=== PATIENT | male | born 1955 | race Hispanic/Latino ===

== ENCOUNTER 2017-12-30 22:16 | Emergency (ER) | payer SELFPAY ==
[2017-12-30] MEDS ORDERED: NA CHLORIDE 0.9% 1,000 ML ONE (22:56)
[2017-12-30 23:20] LABS: Urine Blood TRACE (NEG); Urine Glucose NEGATIVE (NEG); Urine Protein 1+ (NEG); Urine Specific Gravity 1.015 (1.005-1.030)
[2017-12-30 23:34] LABS: Absolute Lymphocytes (CBC) 0.4 K/uL (0.7-4.9); Absolute Monocytes 0.5 K/uL (0.1-1.3); Basophils % 0.9 % (0-1.3); Lymphocytes % 13.1 % (15.3-44.8); MCH 33.9 pg (27.0-35.0); MCV 98.2 fL (80-100); MPV 11.3 fL (7.6-11.3); Monocytes % 15.9 % (3.3-12.3); RBC Red Blood Cell Count 3.57 M/uL (4.33-5.43)
[2017-12-30 23:37] LABS: Protime INR 1.29
[2017-12-30 23:48] LABS: Albumin 3.6 g/dL (3.4-5.0); Bilirubin Total 2.2 mg/dL (0.2-1.0); CKMB Creatine Kinase MB 1.3 ng/mL (0.3-3.6); Magnesium 1.8 mg/dL (1.8-2.4); Potassium 3.4 mmol/L (3.5-5.1); Protein, Total 8.5 g/dL (6.4-8.2)
[2017-12-30 23:56] LABS: Blood Morphology Comment NOT SEEN (NOT SEEN); Platelet Estimate DECR; Urine White Blood Cell Casts OK
[2017-12-31] MEDS ORDERED: POTASSIUM CL SA 10 MEQ TAB PO ONE (00:22)
[2017-12-31 00:43] VITALS: TEMP 98.4
[2017-12-31 00:45] VITALS: BP 156/88; O2SAT 99
--- NOTE | 2017-12-31 08:30 | EKG ---
Test Date: 2017-12-30 Test Time: 22:59:02 Snow Ranger: TL MEASUREMENT RESULTS: Intervals: Rate: 77 HI: 130 QRSD: 94 QT: 440 QTc: 497 [place]: P: 36 HI: 130 QRS: 24 T: 20 INTERPRETIVE STATEMENTS: Normal sinus rhythm Prolonged QT Abnormal ECG Compared to ECG 12/30/2017 22:57:35 Prolonged QT interval now present Electronically Signed On 12-31-17 07:46:48 CDT by Juan Calderon
--- NOTE | 2017-12-31 08:37 | RAD REPORT ---
EXAM DESCRIPTION: RAD - Chest Single View - 12/30/2017 10:45 pm CLINICAL HISTORY: Syncope, shortness of breath COMPARISON: June 2014, May 2014 TECHNIQUE: AP portable chest image was obtained 2232 hours . FINDINGS: No dense mass or consolidations seen. No failure or volume overload. Interstitial markings in each lung base are slightly prominent compared to the upper lung anderson. Baseline for the patient is uncertain. All comparison images had acute pneumonia findings in the lower right lung field. Hear t and vasculature are normal. No measurable pleural effusion and no pneumothorax. No gross bony abnor mality seen. No acute aortic findings suspected. IMPRESSION: No failure, volume overload or consolidated pneumonia. Interstitial markings are prominent in each base, more so to the right. No true baseline for this pat ient is available. A mild or early interstitial edema or infiltrate cannot be excluded.
--- NOTE | 2017-12-31 08:37 | RAD REPORT ---
EXAM DESCRIPTION: CT - Head Brain Wo Cont - 12/30/2017 10:38 pm CLINICAL HISTORY: Transient alteration of awareness, loss of consciousness A preliminary written report was provided at the time of the study, and the report was reviewed prio r to final dictation. COMPARISON: None. TECHNIQUE: Axial 5 mm thick images of the head were obtained without IV contrast. All CT scans are performed using dose optimization technique as appropriate and may include automated exposure control or mA/KV adjustment according to patient size. FINDINGS: No intracranial hemorrhage, mass, edema or shift of mid-line structures. No acute infarcti on changes seen. Atrophy and chronic ischemic changes are present. Prominent perivascular spaces or l acune or infarctions present near each basal ganglia. Arterial and physiologic calcifications are pre sent. Ventricles are in proportion to volume loss. Mastoid air cells and visualized portions of the paranasal sinuses are clear. No acute bony findings. IMPRESSION: Atrophy and chronic ischemic changes are present. No acute intracranial finding.
== END 2017-12-31 00:39 | disposition home or self-care (01) ==
LOC: ER 22:16
DX: E86.0 Dehydration (principal); E87.1 Hypo-osmolality and hyponatremia; E87.6 Hypokalemia
CPT/HCPCS: 36415; 70450; 71045; 80048; 80076; 81003; 82550; 82553; 83735; 83880; 84484; 85025; 85610; 85730; 93005; 99285; J7030

== ENCOUNTER 2019-04-13 10:28 | Emergency (ER) | payer SELFPAY ==
[2019-04-13] MEDS ORDERED: NA CHLORIDE 0.9% 1,000 ML ONE (11:16)
[2019-04-13] MEDS ORDERED: ONDANSETRON 4 MG/2 ML VIAL ONE (11:16)
[2019-04-13] MEDS ORDERED: LIDOCAINE VISCOUS 2% SOLN 15 ML UDC ONE (11:16)
[2019-04-13] MEDS ORDERED: MAGNE/ALUM HYDROXD 30 ML UCUP ONE (11:16)
[2019-04-13] MEDS ORDERED: FAMOTIDINE 20 MG/2 ML VIAL IV ONE (11:16)
[2019-04-13] MEDS ORDERED: GLUCAGON 1 MG/VIAL ONE (11:33)
[2019-04-13 11:38] LABS: Absolute Lymphocytes (CBC) 0.8 K/uL (0.7-4.9); Basophils % 1.3 % (0-1.3); Hematocrit 41.9 % (39.6-49.0); Lymphocytes % 18.1 % (15.3-44.8); MPV 9.1 fL (7.6-11.3); RBC Red Blood Cell Count 4.28 M/uL (4.33-5.43)
[2019-04-13 11:42] LABS: Protime INR 1.16
[2019-04-13 11:56] LABS: ALT/SGPT 69 U/L (12-78); AST/SGOT 105 U/L (15-37); Albumin 4.2 g/dL (3.4-5.0); Alkaline Phosphatase 92 U/L (45-117); BUN Blood Urea Nitrogen 10 mg/dL (7-18); Bicarbonate 29 mmol/L (21-32); Bilirubin Direct 0.9 mg/dL (0-0.2); Bilirubin Total 2.1 mg/dL (0.2-1.0); Glucose Level 103 mg/dL (74-106); Magnesium 1.9 mg/dL (1.8-2.4); NT PRO-BNP 179 pg/mL (<125); Potassium 3.5 mmol/L (3.5-5.1); Protein, Total 9.9 g/dL (6.4-8.2); Sodium Level 140 mmol/L (136-145); Troponin (Emerg Dept Use Only) < 0.02 ng/mL (0.0-0.045)
--- NOTE | 2019-04-13 12:34 | RAD REPORT ---
EXAM DESCRIPTION: CT - Thorax W/ Con - 04/13/2019 12:16 pm CLINICAL HISTORY: Chest pain COMPARISON: None TECHNIQUE: Computed axial tomography of the chest was obtained. 100 cc Isovue 300 was administered i ntravenously. All CT scans are performed using dose optimization technique as appropriate and may include automated exposure control or mA/KV adjustment according to patient size. FINDINGS: 2 centimeter mass is present within the distal esophagus. The esophagus proximal to this i s dilated and fluid-filled. No mediastinal or hilar lymphadenopathy is seen. A pleural effusion is not present. A pericardial effusion is not seen. A cirrhotic liver is present. A 4.9 centimeter enhancing mass is present within the dome of the liver IMPRESSION: A 2 centimeter mass within the distal esophagus probably a foreign body. The more proxim al esophagus is dilated 4.9 centimeter hepatic mass may represent hepatocellular carcinoma
--- NOTE | 2019-04-13 12:40 | RAD REPORT ---
EXAM DESCRIPTION: Rodolfo Single View04/13/2019 11:24 am CLINICAL HISTORY: Chest pain COMPARISON: 2018 FINDINGS: The lungs appear clear of acute infiltrate. The heart is normal size
--- NOTE | 2019-04-13 13:12 | ER ---
Nurse's Notes [facility] Name: Jarrod Bello Age: 63 yrs Sex: Male : 1955 Arrival Date: 04/13/2019 Time: 10:31 Bed 5 Private MD: Diagnosis: Liver disease, unspecified-liver mass Presentation: 04/13 10:48 Presenting complaint: Child states: "He said last night he ate dinner and afterward he aj1 started throwing up and he's been throwing up ever since, and now he's saying that he has pain in the center of his chest." Denies fever, diarrhea. Denies SOB, palpitations. Transition of care: patient was not received from another setting of care. Onset of symptoms was April 12, 2019. Risk Assessment: Do you want to hurt yourself or someone else? Patient reports no desire to harm self or others. Initial Sepsis Screen: Does the patient meet any 2 criteria? No. Patient's initial sepsis screen is negative. Does the patient have a suspected source of infection? No. Patient's initial sepsis screen is negative. Care prior to arrival: None. 10:48 Method Of Arrival: Ambulatory aj1 10:48 Acuity: DANIEL 3 aj1 Triage Assessment: 10:50 General: Appears in no apparent distress. uncomfortable, Behavior is calm, cooperative, aj1 appropriate for age. Pain: Complains of pain in mid-sternal area Pain does not radiate. Pain currently is 3 out of 10 on a pain scale. Quality of pain is described as sharp, Pain began 3 hours ago. Neuro: Level of Consciousness is awake, alert, obeys commands, Oriented to person, place, time, situation. Cardiovascular: Reports chest pain, vomiting, Denies palpitations, shortness of breath, Patient's skin is warm and dry. Respiratory: Airway is patent Respiratory effort is even, unlabored, Respiratory pattern is regular, symmetrical. GI: Abdomen is flat, non-distended, Reports nausea, vomiting, Patient currently denies diarrhea. Historical: - Allergies: 10:50 No Known Allergies; aj1 - Home Meds: 10:50 None [Active]; aj1 - PMHx: 10:50 Cirrhosis; aj1 13:06 Dementia; jl7 - PSHx: 13:06 None; jl7 - Immunization history:: Flu vaccine is not up to date. - Social history:: Smoking status: Patient/guardian denies using tobacco, Patient/guardian denies using alcohol, street drugs, The patient lives with family, with spouse. - Ebola Screening: : Patient denies travel to an Ebola-affected area in the 21 days before illness onset. - Family history:: not pertinent. Screenin:15 Abuse screen: Denies threats or abuse. Denies injuries from another. Nutritional jl7 screening: No deficits noted. Tuberculosis screening: No symptoms or risk factors identified. Fall Risk IV access (20 points). Total Woodward Fall Scale indicates No Risk (0-24 pts). Assessment: 11:15 General: Appears in no apparent distress. uncomfortable, Behavior is calm, cooperative, jl7 appropriate for age. Pain: Denies pain. Neuro: Level of Consciousness is awake, alert, obeys commands, Oriented to person, place, time, situation. Cardiovascular: Heart tones present Patient's skin is warm and dry. Respiratory: Airway is patent Respiratory effort is even, unlabored, Respiratory pattern is regular, symmetrical, Breath sounds are clear bilaterally. GI: Reports Pt reports eating chicken last night and inability to thoroughly chew his food and it feels like the chicken is stuck. Pt reports inability to drink anything at this time. Derm: Skin is pink, warm \\T\\ dry. 11:30 Reassessment: glucagon being held until CT per ERD. jl7 12:30 Reassessment: Glucagon administered, pt attempted to drink sprint but immediately jl7 vomited. ERD notified. 13:30 Reassessment: Patient appears in no apparent distress at this time. No changes from jl7 previously documented assessment. Patient and/or family updated on plan of care and expected duration. Pain level reassessed. Patient is alert, oriented x 3, equal unlabored respirations, skin warm/dry/pink. 14:30 Reassessment: Patient appears in no apparent distress at this time. No changes from rb1 previously documented assessment. Patient and/or family updated on plan of care and expected duration. Pain level reassessed. Patient is alert, oriented x 3, equal unlabored respirations, skin warm/dry/pink. 15:30 Reassessment: Patient appears in no apparent distress at this time. Patient and/or rb1 family updated on plan of care and expected duration. Pain level reassessed. Patient is alert, oriented x 3, equal unlabored respirations, skin warm/dry/pink. 16:30 Reassessment: Patient appears in no apparent distress at this time. Patient and/or rb1 family updated on plan of care and expected duration. Pain level reassessed. Patient is alert, oriented x 3, equal unlabored respirations, skin warm/dry/pink. 17:37 Reassessment: EMS at bedside to transport pt and pt reports "It feels like the food jl7 went down." Pt PO challenged with crackers and water and able to keep food and water down, ERD notified and transfer canceled at this time. Vital Signs: 10:50 BP 168 / 105; Pulse 65; Resp 18; Temp 98.4; Pulse Ox 98% on R/A; Height 5 ft. 8 in. aj1 (172.72 cm) (R); Pain 3/10; 11:11 BP 177 / 98; Pulse 69; Resp 20; Temp 97.9(TE); Pulse Ox 99% on R/A; Pain 4/10; em1 12:04 BP 160 / 95; Pulse 69; Resp 16 S; Pulse Ox 95% on R/A; jl7 ED Course: 10:31 Patient arrived in ED. as 10:50 Triage completed. aj1 10:50 Arm band placed on Patient placed in waiting room, Patient notified of wait time. aj1 10:54 EKG done, by compliance technician. reviewed by Monisha Zarate MD. at1 11:06 Monisha Zarate MD is Attending Physician. ma2 11:13 Emi Mccrary, DAMON is Primary Nurse. jl7 11:15 Patient has correct armband on for positive identification. Bed in low position. Call [facility] light in reach. Side rails up X 1. classroom monitor on. Pulse ox on. NIBP on. 11:15 Initial lab(s) drawn, by me, sent to lab. Inserted saline lock: 20 gauge in right jl7 antecubital area, using aseptic technique. Blood collected. 11:20 Awaiting lab results. jl7 11:24 XRAY Chest (1 view) In Process Unspecified. EDMS 12:[address] Scan. jl7 12:17 CT Chest W/ Con In Process Unspecified. EDMS 13:14 attempted transfer to [facility], pt was denied due to hospital being on bd saturation. per ilda. 17:05 No provider procedures requiring assistance completed. Patient transferred, IV remains jl7 in place. intact, No redness/swelling at site. 17:40 Gato Parks MD is Referral Physician. ma2 Administered Medications: 11:20 CANCELLED (Patient ): Pepcid 20 mg IVP once ma2 11:20 CANCELLED (Patient ): GI Cocktail without - (Maalox Suspension 30 ml, ma2 Lidocaine Liquid 2 % 15 ml) PO once 11:21 CANCELLED (Patient ): Zofran 4 mg IVP once; over 2 minutes ok2 11:34 Drug: NS 0.9% 1000 ml Route: IV; Rate: 1 bolus; Site: right antecubital; jl7 12:30 Follow up: Response: No adverse reaction; IV Status: Completed infusion; IV Intake: rb1 1000ml 12:18 Drug: Glucagon 1 mg Route: IVP; Site: right antecubital; jl7 12:41 Follow up: Response: No change in condition jl7 Intake: 12:30 IV: 1000ml; Total: 1000ml. rb1 Outcome: 13:11 ER care complete, transfer ordered by . ma2 17:40 Discharge ordered by . ma2 18:19 Discharged to home ambulatory. ss 18:19 Condition: good 18:19 Discharge instructions given to patient, family, Instructed on discharge instructions, follow up and referral plans. Demonstrated understanding of instructions, follow-up care. 18:20 Patient left the ED. ss Signatures: Dispatcher [employer] EDMS Feli Batista Angela RN RN ryann1 Winnie Redman Eric em1 Gertrudis Alexander RN RN ss Mabel Gomez, research and development tester EKG Tat1 Lali Zapata, RN RN rb1 Emi Mccrary RN RN jl7 Monisha Zarate MD MD okHoward
--- NOTE | 2019-04-13 13:13 | EDPHYS ---
Physician Documentation [facility] Name: Jarrod Bello Age: 63 yrs Sex: Male : 1955 Arrival Date: 04/13/2019 Time: 10:31 Bed 5 Private MD: ED Physician Monisha Zarate HPI: 04/13 11:41 This 63 yrs old Male presents to ER via Ambulatory with complaints of Food ma2 Bolus. 11:41 The patient presents to the emergency department with vomiting. Onset: The ma2 symptoms/episode began/occurred suddenly. Possible causes: esophageal obstruction. Associated signs and symptoms: Pertinent negatives: belching, fever, hematuria. Severity of symptoms: At their worst the symptoms were no pain, he only feesl something stuck in his esophagus . The patient has not experienced similar symptoms in the past. Historical: - Allergies: 10:50 No Known Allergies; aj1 - Home Meds: 10:50 None [Active]; aj1 - PMHx: 10:50 Cirrhosis; aj1 13:06 Dementia; jl7 - PSHx: 13:06 None; jl7 - Immunization history:: Flu vaccine is not up to date. - Social history:: Smoking status: Patient/guardian denies using tobacco, Patient/guardian denies using alcohol, street drugs, The patient lives with family, with spouse. - Ebola Screening: : Patient denies travel to an Ebola-affected area in the 21 days before illness onset. - Family history:: not pertinent. ROS: 11:41 Constitutional: Negative for fever, chills, and weight loss. ma2 11:41 All other systems are negative. Exam: 11:41 Constitutional: This is a well developed, well nourished patient who is awake, alert, ma2 and in no acute distress. Chest/axilla: Normal chest wall appearance and motion. Nontender with no deformity. No lesions are appreciated. Cardiovascular: Regular rate and rhythm with a normal S1 and S2. No gallops, murmurs, or rubs. Normal PMI, no JVD. No pulse deficits. Respiratory: Lungs have equal breath sounds bilaterally, clear to auscultation and percussion. No rales, rhonchi or wheezes noted. No increased work of breathing, no retractions or nasal flaring. Abdomen/GI: Soft, non-tender, with normal bowel sounds. No distension or tympany. No guarding or rebound. No evidence of tenderness throughout. Skin: Warm, dry with normal turgor. Normal color with no rashes, no lesions, and no evidence of cellulitis. MS/ Extremity: Pulses equal, no cyanosis. Neurovascular intact. Full, normal range of motion. Neuro: Awake and alert, GCS 15, oriented to person, place, time, and situation. Cranial nerves II-XII grossly intact. Motor strength 5/5 in all extremities. Sensory grossly intact. Cerebellar exam normal. Normal gait. Vital Signs: 10:50 BP 168 / 105; Pulse 65; Resp 18; Temp 98.4; Pulse Ox 98% on R/A; Height 5 ft. 8 in. aj1 (172.72 cm) (R); Pain 3/10; 11:11 BP 177 / 98; Pulse 69; Resp 20; Temp 97.9(TE); Pulse Ox 99% on R/A; Pain 4/10; em1 12:04 BP 160 / 95; Pulse 69; Resp 16 S; Pulse Ox 95% on R/A; jl7 MDM: 11:06 Patient medically screened. ma2 11:43 Differential diagnosis: Nonspecific abd pain, gastritis, pancreatitis, esophageal ma2 obstruction. 13:10 Data reviewed: vital signs, nurses notes. Counseling: I had a detailed discussion with maHoward the patient and/or guardian regarding: the historical points, exam findings, and any diagnostic results supporting the discharge/admit diagnosis, the presence of at least one elevated blood pressure reading (>120/80) during this emergency department visit, the need to transfer to another facility. ED course: has esophageal FB, unable to swallow . 13:11 ED course: no gi oncall will transer for higher level of care . ma2 14:04 ED course: accepted by gi. dr. SAM. ma2 17:38 ED course: patient is able to swallow both solid and liquids now.. no esophageal ma2 obstruction, he has new liver mass that is concerning for HCC, will see gi next week discussed with family . 04/13 11:07 Order name: Basic Metabolic Panel; Complete Time: 12:05 ma2 04/13 11:07 Order name: CBC with Diff; Complete Time: 11:51 ma2 04/13 11:07 Order name: LFT's; Complete Time: 12:05 ma2 04/13 11:07 Order name: Magnesium; Complete Time: 12:05 ma2 04/13 11:07 Order name: NT PRO-BNP; Complete Time: 12:05 ma2 04/13 11:07 Order name: PT-INR; Complete Time: 12:05 ma2 04/13 11:07 Order name: Troponin (emerg Dept Use Only); Complete Time: 12:05 ma2 04/13 11:07 Order name: XRAY Chest (1 view); Complete Time: 14:04 ma2 04/13 11:12 Order name: Lipase; Complete Time: 12:05 ma2 04/13 11:22 Order name: CT Chest W/ Con; Complete Time: 14:04 ma2 04/13 11:07 Order name: EKG; Complete Time: 11:08 ma2 04/13 11:07 Order name: Cardiac monitoring; Complete Time: 11:48 ma2 04/13 11:07 Order name: EKG - Nurse/Tech; Complete Time: 11:48 ma2 04/13 11:07 Order name: IV Saline Lock; Complete Time: 11:48 ma2 04/13 11:07 Order name: Labs collected and sent; Complete Time: 11:48 ma2 04/13 11:07 Order name: O2 Per Protocol; Complete Time: 11:48 ma2 04/13 11:07 Order name: O2 Sat Monitoring; Complete Time: 11:48 ma2 Administered Medications: 11:20 CANCELLED (Patient ): Pepcid 20 mg IVP once ma2 11:20 CANCELLED (Patient ): GI Cocktail without - (Maalox Suspension 30 ml, ma2 Lidocaine Liquid 2 % 15 ml) PO once 11:21 CANCELLED (Patient ): Zofran 4 mg IVP once; over 2 minutes ma2 11:34 Drug: NS 0.9% 1000 ml Route: IV; Rate: 1 bolus; Site: right antecubital; jl7 12:30 Follow up: Response: No adverse reaction; IV Status: Completed infusion; IV Intake: rb1 1000ml 12:18 Drug: Glucagon 1 mg Route: IVP; Site: right antecubital; jl7 12:41 Follow up: Response: No change in condition jl7 Disposition: 04/13/19 17:40 Discharged to Home. Impression: Liver disease, unspecified - liver mass. - Condition is Stable. - Discharge Instructions: Diet and Hepatitis, Liver and Spleen Scan. - Medication Reconciliation Form, Thank You Letter, Antibiotic Education, Prescription Opioid Use form. - Follow up: Gato Parks MD; When: Tomorrow; Reason: Continuance of care. - Notes: you have a liver mass that need further investigation. please follow up with liver- gi doctor. Signatures: Dispatcher [employer] EDMS Rufina Trevino RN RN aj1 Gertrudis Alexander RN RN ss Emi Mccrary RN RN jl7 Monisha Zarate MD MD ma Lali Zapata RN rb1 Corrections: (The following items were deleted from the chart) 11:20 11:12 Pepcid 20 mg IVP once ordered. nd2 nd2 11:20 11:12 GI Cocktail without - (Maalox 30 ml, Lidocaine 15 ml) PO once ordered. nd2 nd2 11:20 11:20 GI Cocktail without - (Maalox 30 ml, Lidocaine 15 ml) PO once ordered. nd2 nd2 11:20 11:20 Pepcid 20 mg IVP once ordered. nd2 nd2 11:21 11:12 Zofran 4 mg IVP once; over 2 minutes ordered. nd2 nd2 11:21 11:20 Zofran 4 mg IVP once; over 2 minutes ordered. [place] [id number] 17:39 13:11 04/13/2019 13:11 Transfer ordered to [facility]. Diagnosis is ma2 Esophageal obstruction. Reason for transfer: Higher level of care. Accepting physician is OSH. Condition is Stable. Problem is new. Symptoms are unchanged. nd2 18:20 17:40 04/13/2019 17:40 Discharged to Home. Impression: Liver disease, unspecified - ss liver mass. Condition is Stable. Forms are Medication Reconciliation Form, Thank You Letter, Antibiotic Education, Prescription Opioid Use. Follow up: Gato Parks; When: Tomorrow; Reason: Continuance of care. ma2
--- NOTE | 2019-04-13 18:36 | EKG ---
Test Date: 2019-04-13 Test Time: 10:50:42 Cloth Layer: LALY MEASUREMENT RESULTS: Intervals: Rate: 69 TN: 176 QRSD: 88 QT: 394 QTc: 422 [place]: P: 51 TN: 176 QRS: 66 T: 71 INTERPRETIVE STATEMENTS: Normal sinus rhythm Nonspecific ST abnormality Abnormal ECG Compared to ECG 12/30/2017 22:59:02 ST (T wave) deviation now present Prolonged QT interval no longer present Electronically Signed On 04-13-19 18:34:51 TECHNOLOGY INTEGRATION SPECIALIST by Pasha Orellana
[2019-04-13 19:30] VITALS: TEMP 97.9
[2019-04-13 19:31] VITALS: BP 160/95; O2SAT 95
== END 2019-04-13 18:20 | disposition home or self-care (01) ==
LOC: ER 10:28
DX: K76.9 Liver disease, unspecified (principal); K74.60 Unspecified cirrhosis of liver; F03.90 Unspecified dementia, unspecified severity, without behavioral disturbance, psychotic disturbance, mood disturbance, and anxiety
CPT/HCPCS: 36415; 71045; 71260; 80048; 80076; 83690; 83735; 83880; 84484; 85025; 85610; 93005; 96361; 96374; 99284; J1610; J2405; J7030; Q9967

== ENCOUNTER 2022-06-16 15:43 | Emergency (ER) | payer OTHER ==
--- OUTSIDE RECORDS SUMMARY | 2022-06-16 15:45 | XMS REPORT | Continuity of Care Document ---
:1955 Author Organization [facility] t Address [address] [place] [address] Care Team Providers Name Role Phone Cassius VILLARREAL, Shannan Webster Attending Clinician [phone] SHANNAN HAMMONDS Attending Clinician Unavailable AMARJIT BROWN Attending Clinician Unavailable [facility] Attending Clinician Unavailable Payers Payer Name Policy Type Policy Number Effective Date Expiration Date S ource [employer] MEDICARE 7 [id number] 2021 [id number] GOLD 00:00:00 PLUS 2021 Problems This patient has no known problems. Allergies, Adverse Reactions, Alerts This patient has no known allergies or adverse reactions. Medications This patient has no known medications. Procedures This patient has no known procedures. Encounters Start End Encounter Admission Attending Care Care Encounter Source Date/Time Date/Time Type Type Clinicians Facility Department ID 2022-01-20 2022-01-20 Office Cole Hammonds [id number] 11:00:00 11:30:00 Visit Shannan Osorio [id number] Se debbie Webster [id number] 2022-01-17 2022-01-17 Outpatient JESICA HAMMONDS [id number] 00:00:00 00:00:00 SHANNAN esquivel 2021-12-27 2021-12-27 Outpatient JESICA HAMMONDS [id number] 14:45:00 14:45:00 SHANNAN esquivel 2021-12-10 2021-12-10 Outpatient JESICA BROWN [id number] 00:00:00 00:00:00 AMARJIT Seybol d 2021-12-05 2021-12-05 Outpatient JESICA HAMMONDS [id number] 15:15:00 15:15:00 SHANNAN Seybol d 2021-11-29 2021-11-29 Outpatient JESICA BROWN [id number] 14:00:00 14:00:00 AMARJIT Seybol d 2021-11-27 2021-11-27 Outpatient JESICA HAMMONDS [id number] 00:00:00 00:00:00 SHANNAN Seybol d 2021-11-26 2021-11-26 Outpatient JESICA BROWN [id number] 13:45:00 13:45:00 AMARJIT Seybol d 2021-11-26 2021-11-26 Outpatient JESICA HAMMONDS [id number] 00:00:00 00:00:00 SHANNAN Seybol d 2021-11-22 2021-11-22 Outpatient JESICA HAMMONDS [id number] 00:00:00 00:00:00 SHANNAN Seybol d 2021-11-21 2021-11-21 Outpatient JESICA HAMMONDS [id number] 00:00:00 00:00:00 SHANNAN Seybol d 2021-11-13 2021-11-13 Outpatient [facility]90 JESICA MOONEY [id number] 12:50:00 12:50:00 Seybol d 2021-11-13 2021-11-13 Outpatient JESICA HAMMONDS [id number] 00:00:00 00:00:00 SHANNAN Seybol d 2021-11-13 2021-11-13 Outpatient JESICA HAMMONDS [id number] [address] 00:00:00 00:00:00 SHANNAN Seybol d 2021-11-12 2021-11-12 Outpatient [facility] JESICA MOONEY [id number] [place] 14:30:00 14:30:00 Seybol d 2021-11-122021-11-12 Office Cole Hammonds [id number] 13:30:00 14:15:00 Visit Shannan Osorio [id number] debbie Webster [id number] Results This patient has no known results.
[2022-06-16 16:27] LABS: Absolute Lymphocytes (CBC) 1.1 K/uL (0.7-4.9); Hematocrit 40.8 % (39.6-49.0); Lymphocytes % 14.6 % (15.3-44.8); MCV 94.8 fL (80-100); MPV 9.1 fL (7.6-11.3)
[2022-06-16 16:28] LABS: Protime INR 1.28
--- NOTE | 2022-06-16 16:35 | RAD REPORT ---
EXAM DESCRIPTION: RAD - Chest Single View - 06/16/2022 4:23 pm CLINICAL HISTORY: CHEST PAIN COMPARISON: Portable 04/13/2019 TECHNIQUE: AP portable chest image was obtained 06/16/2022 4:23 pm . FINDINGS: Lung volumes are low. Linear stranding in each lung base is typically atelectasis. No cons olidations seen. A minimal interstitial infiltrate at either lung base could be masked. No failure or volume overload. Heart and vasculature are normal. No measurable pleural effusion and no pneumothorax. No acute bony abnormality seen. No acute aortic findings suspected. IMPRESSION: Limited shallow inspiration exam showing bibasilar atelectasis. Atelectasis could potentially mask minimal infiltrate.
[2022-06-16 16:41] LABS: Albumin 3.3 g/dL (3.4-5.0); Bilirubin Direct 0.8 mg/dL (0-0.2); Bilirubin Total 1.5 mg/dL (0.2-1.0); Magnesium 1.9 mg/dL (1.6-2.4); Potassium 3.6 mmol/L (3.5-5.1); Protein, Total 8.2 g/dL (6.4-8.2); Troponin High Sensitivity 4.6 pg/mL (<58.9)
[2022-06-16] MEDS ORDERED: ASPIRIN 81 MG CHEWABLE TABLET ONE (18:08)
[2022-06-16] MEDS ORDERED: NA CHLORIDE 0.9% 500 ML ONE (18:08)
--- NOTE | 2022-06-16 20:43 | ER ---
Nurse's Notes [facility] Name: Jarrod Bello Age: 66 yrs Sex: Male : 1955 Arrival Date: 06/16/2022 Time: 15:50 Bed 13 Private MD: Diagnosis: Chest pain, unspecified Presentation: 06/16 15:45 Chief complaint: EMS states: "squeezing" chest pain since yesterday morning. hx of db stroke. Glucose 76. Coronavirus screen: Client denies travel out of the [place] in the last 14 days. At this time, the client does not indicate any symptoms associated with coronavirus-19. Ebola Screen: Patient negative for fever greater than or equal to 101.5 degrees Fahrenheit, and additional compatible Ebola Virus Disease symptoms Patient denies exposure to infectious person. Patient denies travel to an Ebola-affected area in the 21 days before illness onset. No symptoms or risks identified at this time. Initial Sepsis Screen: Does the patient meet any 2 criteria? No. Patient's initial sepsis screen is negative. Does the patient have a suspected source of infection? No. Patient's initial sepsis screen is negative. Risk Assessment: Do you want to hurt yourself or someone else? Patient reports no desire to harm self or others. Onset of symptoms was June 16, 2022. 15:45 Method Of Arrival: EMS: [facility] db 15:45 Acuity: DANIEL 2 db Triage Assessment: 15:53 General: Appears in no apparent distress. comfortable, Behavior is calm, cooperative, db quiet. Pain: Denies pain. Cardiovascular: Reports None chest pain yesterday and earlier today none now Capillary refill < 3 seconds Rhythm is sinus tachycardia. Respiratory: No deficits noted. Airway is patent Respiratory effort is even, unlabored, Respiratory pattern is regular, symmetrical. GI: No deficits noted. No signs and/or symptoms were reported involving the gastrointestinal system. : No deficits noted. No signs and/or symptoms were reported regarding the genitourinary system. Historical: - Allergies: 18:24 No Known Allergies; db - PMHx: 15:53 Cirrhosis; Dementia; stroke; db - Immunization history:: Adult Immunizations unknown. - Social history:: Smoking status: Patient denies any tobacco usage or history of. Screenin:22 [facility] ED Fall Risk Assessment (Adult) History of falling in the last 3 months, db including since admission No falls in past 3 months (0 pts) Confusion or Disorientation No (0 pts) Intoxicated or Sedated No (0 pts) Impaired Gait Yes (1 pt) Mobility Assist Device Used Yes (1 pt) Altered Elimination No (0 pt) Score/Fall Risk Level 0 - 2 = Low Risk Oriented to surroundings, Maintained a safe environment, Educated pt \\T\\ family on fall prevention, incl call for assistance when getting out of bed, Hourly rounding (assess needs \\T\\ fall precautionary measures) done. Abuse screen: Denies threats or abuse. Denies injuries from another. Nutritional screening: No deficits noted. Tuberculosis screening: No symptoms or risk factors identified. Assessment: 15:55 Reassessment: SEE TRIAGE FOR INITIAL ASSESSMENT. db 16:23 Reassessment: FAMILY IS AT BEDSIDE. General: Appears in no apparent distress. db comfortable, Behavior is calm, cooperative. Pain: Denies pain. Pain does not radiate. Pain began 1 day ago. 17:00 Reassessment: Patient appears in no apparent distress at this time. No changes from db previously documented assessment. Patient and/or family updated on plan of care and expected duration. Pain level reassessed. Patient is alert, oriented x 3, equal unlabored respirations, skin warm/dry/pink. Patient states symptoms have improved. 18:11 Reassessment: Patient appears in no apparent distress at this time. Patient and/or db family updated on plan of care and expected duration. Pain level reassessed. Patient is alert, oriented x 3, equal unlabored respirations, skin warm/dry/pink. FAMILY AT BEDSIDE. 19:43 Reassessment: Patient appears in no apparent distress at this time. Patient and/or as6 family updated on plan of care and expected duration. Pain level reassessed. Patient is alert, oriented x 3, equal unlabored respirations, skin warm/dry/pink. Vital Signs: 15:45 BP 138 / 87; Pulse 102; Resp 16; Temp 98.9(O); Pulse Ox 99% ; Weight 69.4 kg (M); db Height 5 ft. 9 in. (175.26 cm); Pain 0/10; 16:09 BP 153 / 90; Pulse 97; Resp 20; Pulse Ox 97% on R/A; db 17:00 BP 125 / 84; Pulse 87; Resp 18; Pulse Ox 95% on R/A; db 18:00 BP 131 / 81; Pulse 87; Resp 18; Pulse Ox 96% on R/A; db 19:43 BP 118 / 74; Pulse 78; Resp 15 S; Pulse Ox 94% on R/A; as6 20:51 BP 119 / 84; Pulse 81; Resp 19 S; Pulse Ox 95% on R/A; as6 15:45 Body Mass Index 22.59 (69.40 kg, 175.26 cm) db Vitals: 16:09 Cardiac Rhythm Assessment Regular Sinus tach. db ED Course: 15:50 Patient arrived in ED. db 15:53 Triage completed. db 15:53 Arm band placed on right wrist. Patient placed in an exam room. db 15:55 Galen Zamora PA is PHCP. cp 15:55 Tashi Spencer DO is Attending Physician. cp 16:15 Inserted saline lock: 20 gauge in right antecubital area, using aseptic technique. db ,using aseptic technique. by tech Blood collected. Patient maintains SpO2 saturation greater than 95% on room air. 16:20 Abbi Claudio, RN is Primary Nurse. db 16:21 Patient has correct armband on for positive identification. Placed in gown. Bed in low db position. Call light in reach. Side rails up X2. Client placed on continuous cardiac and pulse oximetry monitoring. NIBP monitoring applied. Warm blanket given. 16:25 XRAY Chest (1 view) In Process Unspecified. EDMS 19:10 Report given to DAMON Kuhn. db 20:42 Callum Sharma MD is Referral Physician. cp 20:55 No provider procedures requiring assistance completed. as6 21:05 IV discontinued, intact, bleeding controlled, No redness/swelling at site. Pressure as6 dressing applied. Administered Medications: 17:15 Drug: NS 0.9% 500 ml Route: IV; Rate: 500 ml/hr; Site: right antecubital; db 21:05 Follow up: Response: No adverse reaction; IV Status: Completed infusion; IV Intake: as6 500ml 17:45 Drug: Aspirin 162 mg Route: PO; db 21:05 Follow up: Response: No adverse reaction as6 Medication: 20:55 VIS not applicable for this client. as6 Intake: 21:05 IV: 500ml; Total: 500ml. as6 Outcome: 20:43 Discharge ordered by . cp 20:55 Condition: stable as6 20:55 Discharge instructions given to patient, family, Instructed on discharge instructions, follow up and referral plans. Demonstrated understanding of instructions, follow-up care. 21:05 Discharged to home via wheelchair, with family. as6 21:05 Patient left the ED. as6 Signatures: Dispatcher [employer] EDMS Galen Zamora PA PA cp Slawson, Ashby, RN RN as6 Abbi Claudio RN RN db
--- NOTE | 2022-06-16 20:43 | EDPHYS ---
Physician Documentation [facility] Name: Jarrod Bello Age: 66 yrs Sex: Male : 1955 Arrival Date: 06/16/2022 Time: 15:50 Bed 13 Private MD: ED Physician Tashi Spencer HPI: 06/16 16:00 This 66 yrs old Male presents to ER via EMS with complaints of Chest Pain > 30 cp y/o. 16:00 The patient or guardian reports chest pain that is located primarily in the anterior cp chest wall. 16:00 Onset: yesterday, pain resolved and returned this morning. The pain does not radiate. cp Associated signs and symptoms: Pertinent negatives: abdominal pain, cough, diaphoresis, lower extremity pain, lower extremity swelling, palpitations, shortness of breath, vomiting. 16:00 The chest pain is described as squeezing. cp 16:00 Duration: The patient or guardian reports multiple episodes, that are intermittent. cp Severity of pain: in the emergency department the pain has improved moderately. Historical: - Allergies: 18:24 No Known Allergies; db - PMHx: 15:53 Cirrhosis; Dementia; stroke; db - Immunization history:: Adult Immunizations unknown. - Social history:: Smoking status: Patient denies any tobacco usage or history of. ROS: 16:05 Constitutional: Negative for body aches, chills, fever, poor PO intake. cp 16:05 Eyes: Negative for injury, pain, redness, and discharge. cp 16:05 ENT: Negative for drainage from ear(s), ear pain, sore throat, difficulty swallowing, difficulty handling secretions. 16:05 Cardiovascular: Positive for chest pain, Negative for edema, palpitations. 16:05 Respiratory: Negative for cough, shortness of breath, wheezing. 16:05 Abdomen/GI: Negative for abdominal pain, nausea, vomiting, and diarrhea. 16:05 Back: Negative for pain at rest, pain with movement. 16:05 Neuro: Negative for altered mental status, dizziness, headache, syncope, weakness. 16:05 All other systems are negative. Exam: 16:10 Constitutional: The patient appears in no acute distress, alert, awake, cp non-diaphoretic, non-toxic, well developed, well nourished. 16:10 Head/Face: Normocephalic, atraumatic. cp 16:10 Eyes: Periorbital structures: appear normal, Conjunctiva: normal, no exudate, no injection, Sclera: no appreciated abnormality, Lids and lashes: appear normal, bilaterally. 16:10 ENT: External ear(s): are unremarkable, Nose: is normal, Mouth: Lips: moist, Oral mucosa: moist, Posterior pharynx: is normal, airway is patent, no erythema, no exudate. 16:10 Neck: ROM/movement: is normal, is supple, without pain, no range of motions limitations. 16:10 Chest/axilla: Inspection: normal, Palpation: is normal, no crepitus, no tenderness. 16:10 Cardiovascular: Rate: normal, Rhythm: regular, Edema: is not appreciated, JVD: is not appreciated. 16:10 Respiratory: the patient does not display signs of respiratory distress, Respirations: normal, no use of accessory muscles, no retractions, labored breathing, is not present, Breath sounds: are clear throughout, no decreased breath sounds, no stridor, no wheezing. 16:10 Abdomen/GI: Inspection: abdomen appears normal, Palpation: abdomen is soft and non-tender, in all quadrants. 16:10 Back: pain, is absent, ROM is normal. 16:10 Skin: no rash present. 16:10 Neuro: Orientation: to person, place \T\ time. Mentation: is normal. 16:20 ECG was reviewed by the Attending Physician. cp 19:47 ECG was reviewed by the Attending Physician. cp Vital Signs: 15:45 BP 138 / 87; Pulse 102; Resp 16; Temp 98.9(O); Pulse Ox 99% ; Weight 69.4 kg (M); db Height 5 ft. 9 in. (175.26 cm); Pain 0/10; 16:09 BP 153 / 90; Pulse 97; Resp 20; Pulse Ox 97% on R/A; db 17:00 BP 125 / 84; Pulse 87; Resp 18; Pulse Ox 95% on R/A; db 18:00 BP 131 / 81; Pulse 87; Resp 18; Pulse Ox 96% on R/A; db 19:43 BP 118 / 74; Pulse 78; Resp 15 S; Pulse Ox 94% on R/A; as6 20:51 BP 119 / 84; Pulse 81; Resp 19 S; Pulse Ox 95% on R/A; as6 15:45 Body Mass Index 22.59 (69.40 kg, 175.26 cm) db MDM: 15:57 Patient medically screened. cp 17:00 Differential diagnosis: acute myocardial infarction, chest wall pain, pericarditis, cp pleurisy, pneumonia, pneumothorax, stable angina, unstable angina. 20:42 Data reviewed: vital signs, nurses notes, lab test result(s), EKG, radiologic studies, cp plain films. 20:42 HEART Score: History: Slightly Suspicious (0), ECG: Normal (0), Age: > or = 65 years cp (2), Risk Factors: No Risk Factors Known (0), Troponin: < or = 1 x Normal Limit (0). The patient was given aspirin in the Emergency Department. Consideration of Admission/Observation Escalation of care including admission/observation considered. I considered the following discharge prescriptions or medication management in the emergency department Medications were administered in the Emergency Department. See MAR. Independent interpretation of the following test(s) in the Emergency Department EKG: See my EKG interpretation above. Special discussion: Based on the patient's history, exam, and Dx evaluation, there is no indication for emergent intervention or inpatient Tx. It is understood by the patient/guardian that if the Sx's persist or worsen they need to return immediately for re-evaluation. 06/16 15:57 Order name: Basic Metabolic Panel; Complete Time: 16:41 cp 06/16 16:42 Interpretation: Normal except: GLUC 115; BUN 6. cp 06/16 15:57 Order name: CBC with Diff; Complete Time: 16:39 cp 06/16 16:39 Interpretation: Normal except: RBC 4.30; LYM% 14.6; MN% 13.1. cp 06/16 15:57 Order name: LFT's; Complete Time: 16:41 cp 06/16 16:42 Interpretation: Normal except: AST 89; ALT 197; BILIT 1.5; BILID 0.8; ALB 3.3; GLOB cp 4.9; A/G 0.7. 06/16 15:57 Order name: Magnesium; Complete Time: 16:41 cp 06/16 15:57 Order name: NT PRO-BNP; Complete Time: 16:41 cp 06/16 15:57 Order name: PT-INR; Complete Time: 16:39 cp 06/16 15:57 Order name: Troponin HS; Complete Time: 16:41 cp 06/16 16:42 Interpretation: Troponin HS 4.6; Reviewed. cp 06/16 15:57 Order name: XRAY Chest (1 view); Complete Time: 16:39 cp 06/16 16:39 Interpretation: Report review. 06/16 15:57 Order name: EKG; Complete Time: 15:58 cp 06/16 15:57 Order name: Cardiac monitoring; Complete Time: 16:21 cp 06/16 15:57 Order name: Lipase; Complete Time: 16:41 cp 06/16 16:42 Interpretation: LIP 65; Reviewed. cp 06/16 19:08 Order name: Troponin High Sensitivity; Complete Time: 20:23 cp 06/16 20:23 Interpretation: Reviewed. cp 06/16 15:57 Order name: EKG - Nurse/Tech; Complete Time: 16:21 cp 06/16 15:57 Order name: IV Saline Lock; Complete Time: 16:21 cp 06/16 15:57 Order name: Labs collected and sent; Complete Time: 16:21 cp 06/16 15:57 Order name: O2 Per Protocol; Complete Time: 16:21 cp 06/16 15:57 Order name: O2 Sat Monitoring; Complete Time: 16:21 cp 06/16 19:08 Order name: EKG - Nurse/Tech; Complete Time: 19:43 cp EC:20 Rate is 86 beats/min. Rhythm is regular. ID interval is normal. QRS interval is normal. cp QT interval is normal. T waves are Normal. Interpreted by me. Reviewed by me. 19:47 Rate is 81 beats/min. Rhythm is regular. ID interval is normal. QRS interval is normal. cp QT interval is normal. T waves are Inverted in lead aVR. Interpreted by me. Reviewed by me. Administered Medications: 17:15 Drug: NS 0.9% 500 ml Route: IV; Rate: 500 ml/hr; Site: right antecubital; db 21:05 Follow up: Response: No adverse reaction; IV Status: Completed infusion; IV Intake: as6 500ml 17:45 Drug: Aspirin 162 mg Route: PO; db 21:05 Follow up: Response: No adverse reaction as6 Disposition: 19:04 Co-signature as Attending Physician, Tashi Spencer DO I was immediately available on-site ms3 in the Emergency Department for consultation in the care of the patient. Disposition Summary: 06/16/22 20:43 Discharge Ordered Location: Home cp Problem: new cp Symptoms: have improved cp Condition: Stable cp Diagnosis - Chest pain, unspecified cp Followup: cp - With: Callum Sharma MD - When: 2 - 3 days - Reason: Recheck today's complaints Discharge Instructions: - Discharge Summary Sheet cp - Nonspecific Chest Pain, Adult cp - Aspirin and Your Heart cp Forms: - Medication Reconciliation Form cp - Thank You Letter cp - Antibiotic Education cp - Prescription Opioid Use cp Signatures: Dispatcher [employer] EDMS Galen Zamora PA PA cp Tashi Spencer DO DO ms3 Abbi Claudio RN RN Bam Zelaya RN as6
[2022-06-16 23:08] VITALS: TEMP 98.9
[2022-06-16 23:14] VITALS: BP 119/84; O2SAT 95
--- NOTE | 2022-06-17 12:26 | EKG ---
Test Date: 2022-06-16 Test Time: 19:41:45 Double Corner Cutter: MEASUREMENT RESULTS: Intervals: Rate: 81 MT: 186 QRSD: 90 QT: 386 QTc: 448 [place]: P: 37 MT: 186 QRS: 24 T: 32 INTERPRETIVE STATEMENTS: Normal sinus rhythm Nonspecific T wave abnormality Abnormal ECG Compared to ECG 04/13/2019 10:50:42 T-wave abnormality now present ST (T wave) deviation no longer present Electronically Signed On 06-17-22 12:24:49 COORDINATE MEASURING MACHINE TECHNICIAN by Callum Sharma
== END 2022-06-16 21:05 | disposition home or self-care (01) ==
LOC: ER 15:43
DX: R07.89 Other chest pain (principal); F03.90 Unspecified dementia, unspecified severity, without behavioral disturbance, psychotic disturbance, mood disturbance, and anxiety; Z86.73 Personal history of transient ischemic attack (TIA), and cerebral infarction without residual deficits
CPT/HCPCS: 96361; 93005; 85025; 80048; 36415; 83735; 85610; 80076; 84484 ×2; 83690; 83880; 71045; 96360; 99285; J7040

== ENCOUNTER 2022-09-21 14:50 | Emergency (ER) | payer OTHER ==
--- OUTSIDE RECORDS SUMMARY | 2022-09-21 14:53 | XMS REPORT | Continuity of Care Document ---
:1955 Author Organization [facility] t Address [address] [place] [address] Care Team Providers Name Role Phone SHANNAN HAMMONDS Attending Clinician Unavailable Shannan Hammonds MD Attending Clinician [phone] AMARJIT BROWN Attending Clinician Unavailable [facility] Attending Clinician Unavailable Payers Payer Name Policy Type Policy Number Effective Date Expiration Date S helio SANCHEZ 7 [id number] 2021 00:00:00 PLUS 42 OA Problems This patient has no known problems. Allergies, Adverse Reactions, Alerts This patient has no known allergies or adverse reactions. Medications This patient has no known medications. Procedures This patient has no known procedures. Encounters Start End Encounter Admission Attending Care Care Encounter Source Date/Time Date/Time Type Type Clinicians Facility Department ID 2022-09-16 2022-09-16 Outpatient JESICA HAMMONDS [id number] [facility] 14:15:00 14:15:00 SHANNAN esquivel 2022-01-20 2022-01-20 Office Cole Hammonds [id number] [facility] 11:00:00 11:30:00 Visit Shannan Osorio [id number] Se debbie Webster [id number] 2022-01-17 2022-01-17 Outpatient JESICA HAMMONDS [id number] [facility] 00:00:00 00:00:00 SHANNNA esquivel 2021-12-27 2021-12-27 Outpatient JESICA HAMMONDS [id number] [facility] 14:45:00 14:45:00 SHANNAN Seybol d 2021-12-10 2021-12-10 Outpatient JESICA BROWN [id number] [facility] 00:00:00 00:00:00 AMARJIT Seybol d 2021-12-05 2021-12-05 Outpatient JESICA HAMMONDS [id number] [place] 15:15:00 15:15:00 SHANNAN Seybol d 2021-11-29 2021-11-29 Outpatient JESICA BROWN [id number] [facility] 14:00:00 14:00:00 AMARJIT Seybol d 2021-11-27 2021-11-27 Outpatient JESICA HAMMONDS [id number] [place] 00:00:00 00:00:00 SHANNAN Seybol d 2021-11-26 2021-11-26 Outpatient JESICA BROWN [id number] [place] 13:45:00 13:45:00 AMARJIT Seybol d 2021-11-26 2021-11-26 Outpatient JESICA HAMMONDS [id number] [place] 00:00:00 00:00:00 SHANNAN Seybol d 2021-11-22 2021-11-22 Outpatient JESICA HAMMONDS [id number] [place] 00:00:00 00:00:00 SHANNAN Seybol d 2021-11-21 2021-11-21 Outpatient JESICA HAMMONDS [id number] [place] 00:00:00 00:00:00 SHANNAN Seybol d 2021-11-13 2021-11-13 Outpatient [facility] JESICA MOONEY [id number] [place] 12:50:00 12:50:00 Seybol d 2021-11-13 2021-11-13 Outpatient JESICA HAMMONDS [id number] [place] 00:00:00 00:00:00 SHANNAN Seybol d 2021-11-13 2021-11-13 Outpatient JESICA HAMMONDS [id number] [facility] 00:00:00 00:00:00 SHANNAN Seybol d 2021-11-12 2021-11-12 Outpatient [facility] JESICA MOONEY [id number] [place] 14:30:00 14:30:00 Semoon esquivel 2021-11-12 2021-11-12 Office Cole Hammonds [id number] [place] 13:30:00 14:15:00 Visit Shannanchago Osorio [id number] debbie Webster [id number] Results This patient has no known results.
[2022-09-21 16:07] LABS: Absolute Lymphocytes (CBC) 0.3 K/uL (0.7-4.9); Hematocrit 39.3 % (39.6-49.0); Lymphocytes % 3.9 % (15.3-44.8); MCV 91.8 fL (80-100); MPV 8.4 fL (7.6-11.3); RBC Red Blood Cell Count 4.28 M/uL (4.33-5.43)
[2022-09-21 16:11] LABS: Protime INR 1.5
--- NOTE | 2022-09-21 16:19 | RAD REPORT ---
EXAM DESCRIPTION: RAD - Chest Single View - 09/21/2022 4:08 pm CLINICAL HISTORY: FEVER COMPARISON: Chest Single View dated 06/16/2022; Chest Single View dated 04/13/2019; Chest Single View dated 12/30/2017; CHEST PA AND LAT 2 VIEW dated 06/26/2014 FINDINGS: Lines: None. Lungs: No evidence of edema or pneumonia. Linear opacities at the left lung base likely representing scarring or atelectasis . Pleural: No significant pleural effusions or pneumothorax. Cardiac: The heart size is within normal limits. Mediastinum: Within normal limits. Bones: No acute fractures. Other: None IMPRESSION: No acute cardiopulmonary disease.
[2022-09-21 16:21] LABS: Albumin 2.9 g/dL (3.4-5.0); Bilirubin Total 1.1 mg/dL (0.2-1.0); Potassium 3.5 mEq/L (3.5-5.1); Protein, Total 8.3 g/dL (6.4-8.2)
--- NOTE | 2022-09-21 17:24 | RAD REPORT ---
EXAM DESCRIPTION: CT - Soft Tissue Neck W/Contr CLINICAL HISTORY: FEVER COMPARISON: CT HEAD CSPINE MPR WO CONTRAST dated 08/05/2015CT HEAD CSPINE MPR WO CONTRAST dated 2015; Head Brain Wo Cont dated 09/21/[address] scans are performed using dose optimization technique as appropriate and may includ e automated exposure control or mA/KV adjustment according to patient size. FINDINGS: Nasopharyngeal tissues are normal in appearance. Fossa Rosenmller are normal. Parapharyngeal fat triangles are symmetric. Tongue base structures are normal. Epiglottis and aryepiglottic folds are normal. Piriform sinuses are well aerated. The vocal cords are normal in appearance. Salivary glands are normal in appearance. Upper lung anderson are clear. Included intracranial contents are unremarkable. Periapical lucencies associated with the central and right lateral incisor of the mandible. Dental ca adrianna present. Most of the teeth are absent. IMPRESSION: Small periapical abscesses associated with the central and right lateral incisor of the mandible. No other source of infection identified in the neck.
[2022-09-21] MEDS ORDERED: NA CHLORIDE 0.9% 2,000 ML ONE (17:25)
--- NOTE | 2022-09-21 17:26 | RAD REPORT ---
EXAM DESCRIPTION: CT - Head Brain Wo Cont - 09/21/2022 5:12 pm CLINICAL HISTORY: WEAKNESS COMPARISON: Head Brain Wo Cont dated 01/06/2022; Head Brain Wo Cont dated 12/30/2017 TECHNIQUE: All CT scans are performed using dose optimization technique as appropriate and may inclu de automated exposure control or mA/KV adjustment according to patient size. FINDINGS: No intracranial hemorrhage, hydrocephalus or extra-axial fluid collection.No areas of brai n edema or evidence of midline shift. Mild chronic small vessel ischemic changes. Remote appearing bi lateral basal ganglia lacunar infarcts. The paranasal sinuses and mastoids are clear. The calvarium is intact. IMPRESSION: No acute intracranial abnormality.
--- NOTE | 2022-09-21 17:35 | RAD REPORT ---
EXAM DESCRIPTION: CTAbdomen Pelvis W Contrast - 09/21/2022 5:17 pm CLINICAL HISTORY: cirrhosis COMPARISON: Thorax W/ Con dated 04/13/2019 TECHNIQUE: CT of the abdomen and pelvis was performed with IV contrast. All CT scans are performed using dose optimization technique as appropriate and may include automated exposure control or mA/KV adjustment according to patient size. FINDINGS: Lower chest: No acute findings. Liver: Multiple hypoattenuating masses are present within the liver. There is a multicystic mass in t he right hepatic lobe measuring 4.7 cm. A hypoattenuating mass the right hepatic lobe measures 2.2 cm . Other smaller lesions noted, some with water attenuation while others are hypoattenuating and possi karly solid Biliary: Cholelithiasis . Mild pericholecystic edema. Cirrhotic liver morphology. Stomach: No significant focal abnormality. Duodenum: No significant focal abnormality. Pancreas: No significant abnormality. Spleen: No significant abnormality. Adrenal: No suspicious lesions. Kidney/ureter: No hydronephrosis. No renal calculi. Retroperitoneum: No retroperitoneal adenopathy. Vascular: No aneurysm. Atherosclerosis . Bowel: No significant focal abnormality. Peritoneum: No ascites or free air. Bladder: Grossly unremarkable. Reproductive: No adnexal masses. Bones: No acute fracture. Other: n/a IMPRESSION: Multiple hypoattenuating liver lesions including a multi-cystic lesion in the right hepa tic lobe measuring 4.7 cm. The multi-cystic lesion could be a hepatic abscess in the appropriate clin ical setting. Consider hepatic protocol MRI if the patient can tolerate. Several of the other lesions are indeterminate, some most likely benign while others could represent solid masses such as either HCC or metastatic disease. Cholelithiasis with mild gallbladder wall thickening. This could be related to underlying liver disea se rather than acute cholecystitis. Correlate with LFTs and patient's symptoms.
[2022-09-21] MEDS ORDERED: VANCOMYCIN 1 GM/VIAL ONE (18:15)
[2022-09-21] MEDS ORDERED: NA CHLORIDE 0.9% 250 ML ONE (18:15)
[2022-09-21] MEDS ORDERED: NA CHLORIDE 0.9% 100 ML ONE (18:15)
[2022-09-21] MEDS ORDERED: PIPERACIL/TAZO 3.375 GM VIAL IV ONE (18:16)
--- NOTE | 2022-09-21 18:31 | ER ---
Nurse's Notes [facility] Pranav Name: Jarrod Bello Age: 66 yrs Sex: Male : 1955 Arrival Date: 09/21/2022 Time: 14:50 Bed 8 Private MD: Diagnosis: Alcoholic cirrhosis of liver;Localized swelling, mass and lump, unspecified-hepatic, may be cystic, abscess, carcinoma;Volume depletion, unspecified;SARS-associated coronavirus as the cause of diseases classified elsewhere Presentation: 09/21 14:51 Chief complaint: EMS states: LIMPING GAIT SINCE YESTERDAY. Coronavirus screen: At this bp time, the client does not indicate any symptoms associated with coronavirus-19. Ebola Screen: No symptoms or risks identified at this time. Initial Sepsis Screen: Does the patient meet any 2 criteria? HR > 90 bpm. No. Patient's initial sepsis screen is negative. Does the patient have a suspected source of infection? No. Patient's initial sepsis screen is negative. Risk Assessment: Do you want to hurt yourself or someone else? Patient reports no desire to harm self or others. Onset of symptoms is unknown. Care prior to arrival: IV initiated. 20 GA, in the left antecubital area, Glucose check: 89. 14:51 Method Of Arrival: EMS: [facility] bp 14:51 Acuity: DANIEL 3 bp Triage Assessment: 14:53 General: Appears in no apparent distress. unkempt, Behavior is cooperative, drowsy. bp Pain: Denies pain. EENT: No deficits noted. Neuro: Level of Consciousness is alert, obeys commands, lethargic, Oriented to person, place, time. Cardiovascular: Rhythm is sinus rhythm. Respiratory: No deficits noted. GI: No signs and/or symptoms were reported involving the gastrointestinal system. : No signs and/or symptoms were reported regarding the genitourinary system. Derm: No deficits noted. Musculoskeletal: No deficits noted. Historical: - Allergies: 14:53 Morphine; bp - Home Meds: 14:53 Unable to obtain [Active]; bp - PMHx: 14:53 Cirrhosis; Dementia; stroke; Hypertensive disorder; bp - Immunization history:: Adult Immunizations up to date. - Social history:: Smoking status: unknown. Screenin:[address] [facility] ED Fall Risk Assessment (Adult) History of falling in the last 3 months, bp including since admission Yes- single mechanical fall (1 pt). Abuse screen: Denies threats or abuse. Denies injuries from another. Nutritional screening: No deficits noted. Tuberculosis screening: No symptoms or risk factors identified. Assessment: 14:54 General: SEE TRIAGE NOTE. bp 15:52 Reassessment: Patient appears in no apparent distress at this time. No changes from hb previously documented assessment. Patient and/or family updated on plan of care and expected duration. Pain level reassessed. 16:51 Reassessment: Patient appears in no apparent distress at this time. No changes from hb previously documented assessment. Patient and/or family updated on plan of care and expected duration. Pain level reassessed. 18:05 Reassessment: No changes from previously documented assessment. Patient and/or family bp updated on plan of care and expected duration. Pain level reassessed. Vital Signs: 14:51 BP 155 / 99; Pulse 103; Resp 15; Temp 101; Pulse Ox 96% on R/A; bp 15:52 BP 165 / 99; Pulse 93; Resp 18; Pulse Ox 96% on R/A; hb 16:51 BP 158 / 89; Pulse 103; Resp 23; Pulse Ox 99% on R/A; hb 16:56 Weight 59.87 kg; Height 5 ft. 1 in. ; hb 17:29 BP 136 / 83; Pulse 86; Resp 21; Pulse Ox 98% on R/A; hb 18:05 BP 147 / 87; Pulse 82; Resp 14; Pulse Ox 98% ; bp 18:06 Temp 99.4; snw 20:27 BP 139 / 81; Pulse 83; Resp 21 S; Pulse Ox 98% on R/A; as6 16:56 Body Mass Index 24.94 (59.87 kg, 154.94 cm) hb ED Course: 14:51 Patient arrived in ED. bp 14:53 [facility] T[facility]C [facility] snw 14:53 Chris Jones MD is Attending Physician. snw 14:53 Triage completed. bp 14:53 Arm band placed on. bp 14:54 Patient has correct armband on for positive identification. Bed in low position. Call bp light in reach. Side rails up X2. 14:54 Maintain EMS IV. Dressing intact. Good blood return noted. Site clean \T\ dry. Gauge \T\ bp site: 20 GA LEFT AC. 14:55 John Granados, RN is Primary Nurse. bp 15:45 Initial lab(s) drawn, by me, sent to lab. First set of blood cultures drawn Second set mm9 of blood cultures drawn EKG done, by ED staff, reviewed by Arelis BARBER. 15:58 Ptt, Activated Sent. mm9 15:58 Protime (+inr) Sent. mm9 15:58 Lactate w/ 2H reflex if indic. Sent. mm9 15:58 CMP Sent. mm9 15:58 CBC with Diff Sent. mm9 15:58 Blood Culture Adult (2) Sent. mm9 15:59 Warm blanket given. Client placed on continuous cardiac and pulse oximetry monitoring. mm9 NIBP monitoring applied. channel process plant operator on. Pulse ox on. NIBP on. 15:59 Inserted saline lock: 20 gauge in right antecubital area, using aseptic technique. mm9 16:10 Chest Single View XRAY In Process Unspecified. EDMS 17:14 CT Head Brain wo Cont In Process Unspecified. EDMS 17:15 CT Soft Tissue Neck W/contr In Process Unspecified. EDMS 17:18 CT Abd/Pelvis - IV Contrast Only In Process Unspecified. EDMS 17:52 initiated a transfer with Naila from the [facility]. eb 18:26 connected the hospitalist radiation technician for [facility] with Arelis Ashford for patient eb transfer consultation. 19:22 Pt Denied by [facility] due to No Covid Beds. rv1 20:28 No provider procedures requiring assistance completed. IV discontinued, intact, as6 bleeding controlled, No redness/swelling at site. Pressure dressing applied. Administered Medications: 16:59 Drug: NS 0.9% IV (30 ml/kg) 30 ml/kg Route: IV; Rate: bolus; Site: left antecubital; hb 20:29 Follow up: Response: No adverse reaction; IV Status: Completed infusion; IV Intake: as6 1796.1ml 18:15 Drug: Piperacillin-Tazobactam IVPB 3.375 grams Route: IVPB; Infused Over: 60 mins; bp Site: left antecubital; 20:28 Follow up: Response: No adverse reaction; IV Status: Completed infusion; IV Intake: as6 100ml 18:15 Drug: vancoMYCIN IVPB 1 grams Route: IVPB; Infused Over: 2 hrs; Site: right antecubital;bp 20:28 Follow up: Response: No adverse reaction; IV Status: Completed infusion; IV Intake: as6 250ml 19:18 Not Given (Medication unavailablee): Chlorhexidine Mouthwash 1 application Mucous jb4 Membrane once Medication: 14:54 VIS not applicable for this client. bp Intake: 20:28 IV: 250ml; Total: 250ml. as6 20:28 IV: 100ml; Total: 350ml. as6 20:29 IV: 1796ml; Total: 2146ml. as6 Outcome: 18:31 ER care complete, transfer ordered by MD. snw 19:36 Discharge ordered by MD. snw 20:28 Discharged to home via wheelchair, with family. as6 20:28 Condition: stable 20:28 Discharge instructions given to patient, family, Instructed on discharge instructions, follow up and referral plans. medication usage, Demonstrated understanding of instructions, follow-up care, medications, Prescriptions given X 2. 20:29 Patient left the ED. as6 Signatures: Dispatcher [employer] EDMS Arelis Tee, CEMENT KILN OPERATOR-C CEMENT KILN OPERATOR-Csnw Caity Jackson RN RN hb Peltier, Brian, RN RN Lary Florentino Ashby, RN RN as6 Kimber Redman Rebecca rv1 Woodrow Paul RN jb4
--- NOTE | 2022-09-21 18:32 | EDPHYS ---
Physician Documentation [facility] Name: Jarrod Bello Age: 66 yrs Sex: Male : 1955 Arrival Date: 09/21/2022 Time: 14:50 Bed 8 Private MD: ED Physician Chris Jones HPI: 09/21 15:12 This 66 yrs old Male presents to ER via EMS with complaints of UNSTEADY GAIT. snw 15:12 Onset: The symptoms/episode began/occurred gradually. It is unknown whether or not the snw patient has had similar symptoms in the past. Pt last here in ED in May. Historical: - Allergies: 14:53 Morphine; bp - Home Meds: 14:53 Unable to obtain [Active]; bp - PMHx: 14:53 Cirrhosis; Dementia; stroke; Hypertensive disorder; bp - Immunization history:: Adult Immunizations up to date. - Social history:: Smoking status: unknown. ROS: 15:10 Eyes: Negative for injury, pain, redness, and discharge, ENT: Negative for injury, snw pain, and discharge, Neck: Negative for injury, pain, and swelling, Cardiovascular: Negative for chest pain, palpitations, and edema, Respiratory: Negative for shortness of breath, cough, wheezing, and pleuritic chest pain, Abdomen/GI: Negative for abdominal pain, nausea, vomiting, diarrhea, and constipation, Back: Negative for injury and pain, : Negative for injury, bleeding, discharge, and swelling. 15:10 Constitutional: Positive for fatigue, malaise. 15:10 MS/extremity: Positive for pt stated this am that his legs would not work. Exam: 15:07 Head/Face: Normocephalic, atraumatic. Eyes: Pupils equal round and reactive to light, snw extra-ocular motions intact. Lids and lashes normal. Conjunctiva and sclera are non-icteric and not injected. Cornea within normal limits. Periorbital areas with no swelling, redness, or edema. 15:07 Neck: Trachea midline, no thyromegaly or masses palpated, and no cervical lymphadenopathy. Supple, full range of motion without nuchal rigidity, or vertebral point tenderness. No Meningismus. Chest/axilla: Normal chest wall appearance and motion. Nontender with no deformity. No lesions are appreciated. 15:07 Respiratory: Lungs have equal breath sounds bilaterally, clear to auscultation and percussion. No rales, rhonchi or wheezes noted. No increased work of breathing, no retractions or nasal flaring. Abdomen/GI: Soft, non-tender, with normal bowel sounds. No distension or tympany. No guarding or rebound. No evidence of tenderness throughout. Back: No spinal tenderness. No costovertebral tenderness. Full range of motion. 15:07 MS/ Extremity: Pulses equal, no cyanosis. Neurovascular intact. Full, normal range of motion. Neuro: Awake and alert, GCS 15, oriented to person, place, time, and situation. Cranial nerves II-XII grossly intact. Motor strength 5/5 in all extremities. Sensory grossly intact. Cerebellar exam normal. Gait not tested. Psych: Awake, alert, with orientation to person, place and time. Behavior, mood, and affect are within normal limits. 15:07 Constitutional: The patient appears awake, febrile, frail, poor oral hygiene, smells of pseudomonas 15:07 ENT: Mouth: Oral mucosa: dry, noted to have obvious stomatitis, Voice: is normal. 15:07 Cardiovascular: Rate: tachycardic, Rhythm: regular, Heart sounds: normal, Edema: is not appreciated. 15:07 Skin: Appearance: some ecchymotic areas. Vital Signs: 14:51 BP 155 / 99; Pulse 103; Resp 15; Temp 101; Pulse Ox 96% on R/A; bp 15:52 BP 165 / 99; Pulse 93; Resp 18; Pulse Ox 96% on R/A; hb 16:51 BP 158 / 89; Pulse 103; Resp 23; Pulse Ox 99% on R/A; hb 16:56 Weight 59.87 kg; Height 5 ft. 1 in. ; hb 17:29 BP 136 / 83; Pulse 86; Resp 21; Pulse Ox 98% on R/A; hb 18:05 BP 147 / 87; Pulse 82; Resp 14; Pulse Ox 98% ; bp 18:06 Temp 99.4; snw 20:27 BP 139 / 81; Pulse 83; Resp 21 S; Pulse Ox 98% on R/A; as6 16:56 Body Mass Index 24.94 (59.87 kg, 154.94 cm) hb MDM: 15:16 Patient medically screened. snw 16:36 Differential Diagnosis sepsis, flu. Data reviewed: vital signs, nurses notes, lab test snw result(s), EKG, radiologic studies. 17:35 ED course: continue to search for infectious source. Only apparent concern is dental. snw Awaiting CT abd results. Will give dose of zosyn in ED, hydrate pt, and try to ambulate. 17:55 ED course: Results of CT + for possible liver abscess - will transfer to higher level [facility] of care.. 18:00 Management of patient was discussed with the following: Principal Engineer: Dr. Ocampo, w discussed results of CT study, recommends transfer to higher level of care. Dr. Piña at [facility]. She kindly accepts pt in transfer. CoVid test pending. . Counseling: I had a detailed discussion with the patient and/or guardian regarding: the historical points, exam findings, and any diagnostic results supporting the discharge/admit diagnosis, the presence of at least one elevated blood pressure reading (>120/80) during this emergency department visit, lab results, radiology results, the need to transfer to another facility, for higher level of care, [facility] does not immediately have the required specialist. 18:00 Historians other than the Patient: Daughter/Son: Daughter. snw 18:59 ED course: Pt + for CoVid - will make transfer center aware.. snw 19:30 ED course: Pt and family notified of pt CoVid result, no available CoVid beds at [facility]. Daughter states she feels all s/s related to CoVid and would like discharge. Risks of dc discussed and Pt and family would like discharge home. Informed dc discussed and pt and family asked to return to ED immediately for worsening s/s, concerns. . 09/21 14:54 Order name: Blood Culture Adult (2) [facility] 09/21 14:54 Order name: CBC with Diff; Complete Time: 16:17 w 09/21 14:54 Order name: CMP; Complete Time: 16:21 w 09/21 14:54 Order name: Lactate w/ 2H reflex if indic.; Complete Time: 16:35 [facility] 09/21 14:54 Order name: Protime (+inr); Complete Time: 16:17 [facility] 09/21 14:54 Order name: Ptt, Activated; Complete Time: 16:17 snw 09/21 15:07 Order name: AMMONIA; Complete Time: 16:17 snw 09/21 17:54 Order name: SARS RAPID; Complete Time: 18:59 eb 09/21 18:09 Order name: Flu; Complete Time: 19:12 snw 09/21 19:19 Order name: Lactate Sepsis 2 HR Follow-up; Complete Time: 19:25 EDMS 09/21 14:54 Order name: Chest Single View XRAY; Complete Time: 16:21 snw 09/21 16:42 Order name: CT Head Brain wo Cont; Complete Time: 17:34 snw 09/21 16:42 Order name: CT Soft Tissue Neck W/contr; Complete Time: 17:25 snw 09/21 17:07 Order name: CT Abd/Pelvis - IV Contrast Only; Complete Time: 17:45 snw 09/21 14:54 Order name: EKG; Complete Time: 14:55 snw 09/21 14:54 Order name: Accucheck; Complete Time: 14:56 snw 09/21 14:54 Order name: Cardiac monitoring; Complete Time: 14:56 snw 09/21 14:54 Order name: EKG - Nurse/Tech; Complete Time: 15:58 snw 09/21 14:54 Order name: IV Saline Lock - Large Bore; Complete Time: 14:56 snw 09/21 14:54 Order name: Labs collected and sent; Complete Time: 15:58 snw 09/21 14:54 Order name: O2 Per Protocol; Complete Time: 14:56 snw 09/21 14:54 Order name: O2 Sat Monitoring; Complete Time: 14:56 snw 09/21 14:54 Order name: Vital Signs; Complete Time: 14:56 snw 09/21 17:48 Order name: VS Recheck; Complete Time: 18:05 snw EC:32 Rate is 92 beats/min. Rhythm is regular. QRS University is Normal. NV interval is normal. QRS snw interval is normal. Clinical impression: Normal ECG. Administered Medications: 16:59 Drug: NS 0.9% IV (30 ml/kg) 30 ml/kg Route: IV; Rate: bolus; Site: left antecubital; hb 20:29 Follow up: Response: No adverse reaction; IV Status: Completed infusion; IV Intake: as6 1796.1ml 18:15 Drug: Piperacillin-Tazobactam IVPB 3.375 grams Route: IVPB; Infused Over: 60 mins; bp Site: left antecubital; 20:28 Follow up: Response: No adverse reaction; IV Status: Completed infusion; IV Intake: as6 100ml 18:15 Drug: vancoMYCIN IVPB 1 grams Route: IVPB; Infused Over: 2 hrs; Site: right antecubital;bp 20:28 Follow up: Response: No adverse reaction; IV Status: Completed infusion; IV Intake: as6 250ml 19:18 Not Given (Medication unavailablee): Chlorhexidine Mouthwash 1 application Mucous jb4 Membrane once Disposition Summary: 09/21/22 19:36 Discharge Ordered Location: Home snw Condition: Stable(09/21/22 19:36) snw Diagnosis - Alcoholic cirrhosis of liver snw - Localized swelling, mass and lump, unspecified - hepatic, may be cystic, abscess, snw carcinoma - Volume depletion, unspecified snw - SARS-associated coronavirus as the cause of diseases classified elsewhere snw Followup: snw - With: Private Physician - When: Tomorrow - Reason: Recheck today's complaints, Continuance of care, Re-evaluation by your physician Followup: snw - With: Emergency Department - When: As needed - Reason: Worsening of condition Discharge Instructions: - Discharge Summary Sheet snw - Cirrhosis snw - Dehydration, Elderly snw - Dental Caries, Adult snw - Liver Biopsy snw - Rehydration, Elderly snw - Liver Abscess snw - COVID-19 snw - 10 Things You Can Do to Manage Your COVID-19 Symptoms at Home - [facility] (12/07/2020) snw - COVID-19: Quarantine and Isolation - [facility] (08/21/2021) snw - COVID-19: What to Do If You Are Sick - [facility] (08/13/2021) snw Forms: - Medication Reconciliation Form snw - Thank You Letter snw - Antibiotic Education snw - Prescription Opioid Use snw Prescriptions: - chlorhexidine gluconate 0.12 % Mucous Membrane Mouthwash - swish 1 application by BUCCAL route 2 times per day; 480 milliliter; Refills: snw 0, Product Selection Permitted - Augmentin 875-125 mg Oral Tablet - take 1 tablet by ORAL route every 12 hours for 10 days; 20 tablet; Refills: 0, snw Product Selection Permitted Addendum: 09/24/2022 13:29 I reviewed the patient's care provided by the Advanced Practice Provider and agree with racquel r11 the diagnosis and treatment plan. Signatures: Dispatcher [employer] EDMS Arelis Tee, MOLECULAR GENETIC PATHOLOGIST-C MOLECULAR GENETIC PATHOLOGIST-Csnw Caity Jackson RN RN hb John Granados RN RN bp Chris Jones MD MD [id number] Woodrow Paul RN jb4 Bam Baez RN as6 Corrections: (The following items were deleted from the chart) 09/21 15:12 15:07 MS/ Extremity: Pulses equal, no cyanosis. Neurovascular intact. Full, normal snw range of motion. Neuro: Awake and alert, GCS 15, oriented to person, place, time, and situation. Cranial nerves II-XII grossly intact. Motor strength 5/5 in all extremities. Sensory grossly intact. Cerebellar exam normal. Normal gait. Psych: Awake, alert, with orientation to person, place and time. Behavior, mood, and affect are within normal limits. snw 19:34 18:31 Dr. Piña snw snw 19:34 18:31 [facility] snw snw 19:34 18:31 Higher level of care snw snw 19:34 18:31 Stable snw snw 19:34 18:31 new snw snw 19:34 18:31 are unchanged snw snw 19:34 18:31 Alcoholic cirrhosis of liver without ascites - possible liver abscess snw snw 19:34 18:31 Fever presenting with conditions classified elsewhere snw snw 19:34 18:31 Muscle weakness (generalized) snw snw
[2022-09-21 18:58] LABS: SARS-CoV-2 Antigen Rapid Res Positive (Negative)
[2022-09-21 21:26] VITALS: O2SAT 98
[2022-09-21 21:28] VITALS: TEMP 99.4
[2022-09-21 21:30] VITALS: BP 139/81
--- NOTE | 2022-09-22 12:39 | EKG ---
Test Date: 2022-09-21 Test Time: 15:19:15 Youth Probation Officer: HB MEASUREMENT RESULTS: Intervals: Rate: 92 VT: 172 QRSD: 90 QT: 354 QTc: 437 [place]: P: 38 VT: 172 QRS: 36 T: 25 INTERPRETIVE STATEMENTS: Normal sinus rhythm Normal ECG Compared to ECG 06/16/2022 19:41:45 T-wave abnormality no longer present Electronically Signed On 09-22-22 12:37:12 CDT by Pasha Orellana
== END 2022-09-21 20:29 | disposition home or self-care (01) ==
LOC: ER 14:50
DX: K70.30 Alcoholic cirrhosis of liver without ascites (principal); U07.1 COVID-19; E86.9 Volume depletion, unspecified; R22.9 Localized swelling, mass and lump, unspecified; I10 Essential (primary) hypertension; F03.90 Unspecified dementia, unspecified severity, without behavioral disturbance, psychotic disturbance, mood disturbance, and anxiety; Z88.5 Allergy status to narcotic agent
CPT/HCPCS: 93005; 87040 ×2; 85025; 36415; 82140; 85610; 83605 ×2; 85730; 80053; 87804 ×2; 70450; 70491; 74177; 71045; 99285; 87811; Q9967; J2543; J7050; J7030